=== PATIENT | female | born 1945 ===

== ENCOUNTER → 2017-06-24 | Outpatient (REF) | LOC: ZLAB.WCH 10:20 | DX: Z01.89 Encounter for other specified special examinations (principal) ==

== ENCOUNTER → 2019-09-15 | Outpatient (CLI) | payer MEDICARE | LOC: COL.RAD 13:33 | DX: G20 Parkinson's disease (principal); G25.81 Restless legs syndrome; G47.00 Insomnia, unspecified; G31.9 Degenerative disease of nervous system, unspecified ==

== ENCOUNTER 2020-09-15 12:20 | Emergency (ER) | payer MEDICARE ==
[~2020-09-15] VITALS: Ht 175.3 cm; Wt 59.1 kg
[2020-09-15 12:20] VITALS: TEMP 97.3
[2020-09-15 13:01] LABS: BASO % 0.9 % (0.0-2.0); EOS # 0.1 (0.0-0.7); EOS % 2.1 % (0-4.0); GRAN # 2.2 (1.4-6.5); GRAN % 51.2 % (42.2-75.2); HEMATOCRIT 36.7 % (37.0-47.0); HEMOGLOBIN 11.6 g/dl (12.5-16.0); LYMPH # 1.6 (1.2-3.4); LYMPH % 36.4 % (20.0-51.0); MEAN CELL VOLUME 97 fl (80.0-100.0); MEAN CORPUSCULAR HEMOGLOBIN 31 pg (27.0-31.0); MEAN CORPUSCULAR HGB CONC 32 g/dl (33.0-37.0); MEAN PLATELET VOLUME 9.2 fl (7.4-10.4); MONO # 0.4 (0.1-0.6); MONO % 9.2 % (1.7-9.3); PLATELET COUNT 250 K/mm3 (130-400); REDCELL DISTRIBUTION WIDTH-CV 12.3 % (11.5-14.5)
[2020-09-15 13:15] LABS: ALBUMIN 3.3 gm/dL (3.5-5.0); ALKALINE PHOSPHATASE 49 U/L (50-136); ANION GAP 3 mmol/L (7-16); AST,SGOT 17 U/L (15-37); BILIRUBIN,TOTAL 0.3 mg/dL (0.0-1.0); BLOOD UREA NITROGEN 14 mg/dL (7-17); CALCIUM 8.9 mg/dL (8.4-10.2); CARBON DIOXIDE 30 mmol/L (22-30); CHLORIDE 107 mmol/L (98-107); CREATININE, serum 0.59 (0.52-1.25); GLUCOSE 77 mg/dL (74-106); POTASSIUM 4.1 mmol/L (3.4-5.0); SODIUM 139 mmol/L (137-145); TOTAL PROTEIN 6.4 gm/dL (6.4-8.2)
[2020-09-15 13:17] LABS: COLLECTION METHOD CLEAN CATCH
[2020-09-15 13:18] LABS: ALANINE AMINOTRANSFERASE < 4 U/L (4-34)
[2020-09-15 13:30] LABS: PH 7 (5-8); SQUAMOUS EPITHELIAL None Seen /hpf; URINE APPEARANCE Hazy; URINE BACTERIA Rare /hpf; URINE BILIRUBIN Negative (NEGATIVE); URINE BLOOD 1+ (NEGATIVE); URINE COLOR Straw; URINE GLUCOSE Negative (NEGATIVE); URINE KETONE Negative (NEGATIVE); URINE LEUKOCYTE ESTERASE 3+ (NEGATIVE); URINE NITRATE Negative (NEGATIVE); URINE PROTEIN(semi-quant) Negative (NEGATIVE); URINE RBC 0-2 /hpf; URINE UROBILINOGEN Negative (NEGATIVE)
[2020-09-15] MEDS ORDERED: CIPRO 250MG TA250 MG PO (14:36)
[2020-09-15 15:58] VITALS: BP 138/93; PULSE 72
== END 2020-09-15 15:58 | disposition home or self-care (01) ==
LOC: COL.ER 12:20
PROVIDERS: Physician Assistant
DX: I95.9 Hypotension, unspecified (principal); N39.0 Urinary tract infection, site not specified; G20 Parkinson's disease; Z88.0 Allergy status to penicillin
CPT/HCPCS: J0696; J7030

== ENCOUNTER → 2023-05-12 | Outpatient (CLI) | payer MEDICARE ==
[~2023-05-12] MED LIST: B-12 500 MCG PO; CIPRO 250MG TA250 MG PO; COLACE 100100 MG/CAP PO; DEBROX OT; DULCOLAX TAB5 MG PO; GENTLE LAXATIVE10 MG RC; IMODIUM 2MG CAPS2 MG PO; MAG-OX 400400 MG/TAB PO; MILK OF MA400 MG/52 PO; MIRALAX PA17 GM/Dose PO; MYLANTA 150 ML150 M1 PO; NYAMYC100000 U/G TP; REFRESH PLUS 00.4 M1 OP; RYTARY1 CE2 PO; TYLENOL 325MG325 MG PO; TYLENOL SU650 MG/SUP RC; VITAMIN D 50,1.25 MG PO; VITAMIND3 5000 PO; [UNRECOGNIZED DRUG - OTHER] PO
[2023-05-12 13:05] LABS: BASO % 0.4 % (0.0-2.0); EOS % 0.4 % (0.0-4.0); GRAN # 5.3 K/mm3 (1.4-6.5); GRAN % 76.5 % (42.2-75.2); HEMATOCRIT 44.6 % (37.0-47.0); HEMOGLOBIN 14.3 g/dl (12.5-16.0); LYMPH # 1.1 K/mm3 (1.2-3.4); MEAN CELL VOLUME 95 fl (80.0-100.0); MEAN CORPUSCULAR HEMOGLOBIN 30 pg (27-31); MEAN CORPUSCULAR HGB CONC 32 g/dl (33.0-37.0); MEAN PLATELET VOLUME 9.6 fl (7.4-10.4); MONO # 0.4 K/mm3 (0.1-0.6); MONO % 6.3 % (1.7-9.3); PLATELET COUNT 341 K/mm3 (130-400); RED BLOOD COUNT 4.72 M/mm3 (4.10-5.30)
[2023-05-12 13:23] LABS: ALBUMIN 3.8 gm/dL (3.4-4.8); ALKALINE PHOSPHATASE 60 U/L (40-150); ANION GAP 9 mmol/L (7-16); AST,SGOT 14 U/L (5-34); BILIRUBIN,TOTAL 0.6 mg/dL (0.2-1.2); BLOOD UREA NITROGEN 29 mg/dL (10-20); CALCIUM 9.8 mg/dL (8.4-10.2); CARBON DIOXIDE 25 mmol/L (23-31); CHLORIDE 106 mmol/L (98-107); CREATININE, serum 0.67 mg/dL (0.57-1.11); GLUCOSE 109 mg/dL (70-99); LIPASE 59 U/L (8-78); SODIUM 140 mmol/L (136-145); TOTAL PROTEIN 7.2 gm/dL (6.2-8.1)
[2023-05-12 13:24] LABS: ALANINE AMINOTRANSFERASE < 6 U/L (0-55)
== END ==
LOC: COL.LAB 12:48
PROVIDERS: Internal Medicine
DX: I87.2 Venous insufficiency (chronic) (peripheral) (principal)

== ENCOUNTER → 2023-12-10 | Outpatient (REF) | payer MEDICARE, MEDICAID ==
[2023-12-10 17:42] LABS: COLLECTION METHOD CATHETER
[2023-12-10 17:46] LABS: PH 6.5 (5.0-8.5); URINE APPEARANCE CLEAR (CLEAR/HAZY); URINE BLOOD NEGATIVE (NEGATIVE); URINE COLOR YELLOW (YELLOW); URINE GLUCOSE NEGATIVE (NEGATIVE); URINE KETONE NEGATIVE (NEGATIVE); URINE NITRATE NEGATIVE (NEGATIVE); URINE PROTEIN(semi-quant) NEGATIVE (NEGATIVE); URINE UROBILINOGEN 0.2 E.U/dL (0.2-1.0)
== END ==
LOC: ZCOL.LAB 16:26
PROVIDERS: Physician Assistant
DX: N39.0 Urinary tract infection, site not specified (principal)

== ENCOUNTER 2024-01-05 00:36 | Inpatient (IN) | payer MEDICARE, MEDICAID ==
[~2024-01-05] VITALS: Ht 175.3 cm; Wt 69.9 kg
[2024-01-05] VITALS (9 sets, daily range): BP systolic 118–133; BP diastolic 73–83; PULSE 76–96; TEMP 97.5–99.6
[2024-01-05] MEDS ORDERED: Morphine 4 MG/ML VIAL IV ONE (01:00)
[2024-01-05] MEDS ORDERED: NS 1,000 ML IV ONE (01:15)
[2024-01-05] MEDS ORDERED: Ondansetron 4 MG/2 ML VIAL IV ONE (01:15)
[2024-01-05 01:54] LABS: HEMATOCRIT 46.7 % (37.0-47.0); HEMOGLOBIN 15.3 g/dl (12.5-16.0); MEAN CELL VOLUME 94 fl (80.0-100.0); MEAN CORPUSCULAR HEMOGLOBIN 31 pg (27-31); MEAN CORPUSCULAR HGB CONC 33 g/dl (33.0-37.0); MEAN PLATELET VOLUME 9.8 fl (7.4-10.4); PLATELET COUNT 374 K/mm3 (130-400); RED BLOOD COUNT 4.96 M/mm3 (4.10-5.30); REDCELL DISTRIBUTION WIDTH-CV 12.8 % (11.5-14.5)
[2024-01-05] MEDS ORDERED: LR 1,000 ML IV ONE ×2 (02:00→21:00)
[2024-01-05 02:08] LABS: COLLECTION METHOD CATHETER
[2024-01-05 02:09] LABS: ALBUMIN 3.8 g/dL (3.4-4.8); BILIRUBIN,TOTAL 0.6 mg/dL (0.2-1.2); C-REACTIVE PROTEIN 0.4 mg/dL (0.00-0.50); CALCIUM 9.6 mg/dL (8.4-10.2); CREATININE, serum 0.78 mg/dL (0.57-1.11); POTASSIUM 3.7 mEq/L (3.5-4.5); TOTAL PROTEIN 7.8 g/dl (6.2-8.1)
[2024-01-05 02:25] LABS: PH 5.5 (5.0-8.5); URINE APPEARANCE CLEAR (CLEAR/HAZY); URINE BLOOD TRACE (NEGATIVE); URINE COLOR YELLOW (YELLOW); URINE GLUCOSE NEGATIVE (NEGATIVE); URINE KETONE 3+ (NEGATIVE); URINE NITRATE NEGATIVE (NEGATIVE); URINE PROTEIN(semi-quant) 2+ (NEGATIVE)
[2024-01-05 02:39] LABS: MUCOUS PRESENT (NOT PRESENT); SQUAMOUS EPITHELIAL NONE SEEN /hpf (0-10); URINE BACTERIA RARE /hpf (NONE SEEN); URINE RBC 0-2 /hpf (0-2); URINE WBC None Seen /hpf (0-2)
[2024-01-05 02:49] LABS: BAND 8 % (0-10); LYMPHOCYTE 8 % (20.0-51.0); NEUTROPHILS 84 % (42.0-75.2)
[2024-01-05 02:51] LABS: PLATELET ESTIMATE NORMAL (NORMAL)
[2024-01-05] MEDS ORDERED: Iohexol 300 - 100 ML VIAL IV ONE (03:08)
[2024-01-05] MEDS ORDERED: NS 50 ML IV ONE (03:09)
[2024-01-05] MEDS ORDERED: Cefepime 1 G in Water For Injection,Sterile 10 ML IV ONE (03:15)
[2024-01-05] MEDS ORDERED: LINZESS145CAP PO (03:18)
[2024-01-05] MEDS ORDERED: [UNRECOGNIZED DRUG - OTHER] OP (03:19)
[2024-01-05] MEDS ORDERED: QUALITY CHOICE125 MG PO (03:21)
[2024-01-05] MEDS ORDERED: Ondansetron 4 MG/2 ML VIAL IV PRN (04:00)
[2024-01-05] MEDS ORDERED: LR 1,000 ML IV SCH (04:15)
--- NOTE | 2024-01-05 05:01 | NUR ---
Called Aaron, the PA and made him aware that patient has an NG tube, received an order to put the patient to LIS. Also received an order for covid swab.
--- NOTE | 2024-01-05 05:57 | NUR ---
Patient arrived to the floor at 0431 per cart from the ED, A/Ox4, with daughter Renee, admission assessment and intake done, hospital policies orientated, with oxygen via nasal cannula at 2LPM, with NG tube F16 to right nare, IV infusing well on left AC, reports minimal pain at 2/10, denies further needs, call light and personal items within reach, will continue to monitor.
[2024-01-05] MEDS ORDERED: TUMS500 MG (06:53)
[2024-01-05] MEDS ORDERED: VOLTAREN GEL 1%1 TU TP (06:55)
[2024-01-05] MEDS ORDERED: ZOFRAN 4MG T4 MG/TAB (06:57)
--- NOTE | 2024-01-05 08:50 | NUR ---
Patient resting in bed. Sleepy, but arouses. [facility] called, just updated on status of admission. Denies pain when asked. She remains NPO. Deines nausea. NG to CALVIN cobb/johny output. IVf as ordered. Heels floated. Patient hands clenched, able to lightly squeeze hands. Denies other needs at this time.
[2024-01-05] MEDS ORDERED: metroNIDAZOLE 100 ML IV SCH (10:30)
--- NOTE | 2024-01-05 11:09 | NUR ---
Patient repositioned in bed. Hospitalist rounded, order received
--- NOTE | 2024-01-05 11:57 | NUR ---
Data: Patient accepted spiritual care visit offered during Supervisor [employer] rounds. Patient stated she is Muslim, but is listed as Yarsanism on the census. Assessment: Patient desired prayer and scripture reading. Patient wants communion. Plan of Care: Supervisor [employer] provided supportive listening; read several Psalms; provided Patient with a rosaray; and prayer. Supervisor [employer] asked admissions in ED to change Patient's denomination in system so that she will be listed as Muslim to be able to receive communion on Sunday. Chaplains will remain available as needed/requested while admitted to this hospital.
--- NOTE | 2024-01-05 13:00 | NUR ---
Patient repositioned in bed. Bedpan used to Void, patient continent of urine. Pericares provided. IVf and antibiotic as ordered. Will monitor
--- NOTE | 2024-01-05 18:07 | NUR ---
Patient resting in bed. She has been continent of urine, using bedpan, assisted with pericares. She remains NPO with NG tube to LIS. IVF as ordered. Scds, Ble. Reoriented as needed. Reminded to not pull at tubes. High fall risk protocol followed.
--- NOTE | 2024-01-05 21:01 | NUR ---
Patient assessed at this time, drowsy but arousable, able to answer this nurse questions, see shift assessment, NG to LIS to her R nare, on oxygen at 2LPM via nasal cannula, IV infusing well on left antecubital LR at 75cc/hr, spoken to Aaron, the PA and received and order to continue the fluids at same rate, noted incontinent of urine, pericare provided, complete bed change done and repositioned to her right side to offload bottom, denies pain or discomfort, NPO maintained, oral swabs provided, denies further needs, call light and personal items within reach, will continue to monitor.
--- NOTE | 2024-01-05 23:41 | NUR ---
Repositioned patient to the left side, NG to LIS, with oxygen at 2LPM via nasal cannula, still drowsy but arousable.
[2024-01-06] VITALS (13 sets, daily range): BP systolic 118–166; BP diastolic 70–110; PULSE 79–108; TEMP 98.2–99.4
--- NOTE | 2024-01-06 01:30 | NUR ---
Originally NG was assessed at 65inches,at this time observed 70 inches marked. Readvanced NG down to original 65 inches marked, placement confirmed with charge nurse per auscultation, patient tolerated it, will monitor.
--- NOTE | 2024-01-06 03:26 | NUR ---
Patient incontinent of urine at this time, pericare provided, face wiped with wash cloth, oral care done, denies further needs.
[2024-01-06 06:29] LABS: BASO % 0.4 % (0.0-2.0); EOS # 0.1 K/mm3 (0.0-0.7); EOS % 0.7 % (0.0-4.0); GRAN # 6.6 K/mm3 (1.4-6.5); GRAN % 73.6 % (42.2-75.2); LYMPH # 1.7 K/mm3 (1.2-3.4); LYMPH % 18.7 % (20.0-51.0); MEAN CELL VOLUME 95 fl (80.0-100.0); MEAN CORPUSCULAR HEMOGLOBIN 30 pg (27-31); MEAN CORPUSCULAR HGB CONC 32 g/dl (33.0-37.0); MONO # 0.6 K/mm3 (0.1-0.6); MONO % 6.3 % (1.7-9.3); PLATELET COUNT 277 K/mm3 (130-400); REDCELL DISTRIBUTION WIDTH-CV 12.9 % (11.5-14.5)
[2024-01-06 06:49] LABS: HEMATOCRIT 39.1 % (37.0-47.0); HEMOGLOBIN 12.4 g/dl (12.5-16.0)
[2024-01-06 06:51] LABS: CALCIUM 8.5 mg/dL (8.4-10.2); CREATININE, serum 0.68 mg/dL (0.57-1.11); POTASSIUM 3.7 mEq/L (3.5-4.5)
--- NOTE | 2024-01-06 07:45 | NUR ---
Pt. sitting up in bed. Pt. is Alert and oriented to self, time and place, but still seems confused and upset. Pt. report from nursing facility, pt. is a sit to stand. This am pt. is very upset that we will not "walk" her into the bathroom. Discussed PT with the pt. Pt. also had pulled out her NG tube. New 16 Fr. placed to rt. nare, 60 cm malia noted and taped. Abd. auscultated for placement. Jon drainage noted, and place to LIS. IV site to lt. forearm also leaking. New sited started to rt. wrist, 20g. Shift assessment completed. Fluids running to new site per orders. Pericare provided to the pt. When asked if the pt. needed anything else, she stated "Well you could be nicer to me." Tried to explain to the pt. that the NG tube and IV were nessessary things at this time and that this nurse was not trying to be "mean" to her. Pt. then ignored this nurse completely.
--- NOTE | 2024-01-06 11:00 | NUR ---
Social work met with patient and patient's daughter Renee at bedside to discuss Discharge planning. Patient was semi-lucid, and dtr Renee answered SWs questions. Renee stated that the patient resides at [facility] and that her PCP is Dr. Gaviria. Renee reported that patient utilizes a wheelchair and needs assistance with all of her ADLs. Social work will fax clinical updates to [facility]. Plan: D/C to [facility]
--- NOTE | 2024-01-06 12:29 | NUR ---
greenhouse worker faxed clinical updates to [facility]
[2024-01-06] MEDS ORDERED: LR 1,000 ML IV SCH (14:15)
[2024-01-06] MEDS ORDERED: hydrALAZINE 20 MG/ML 1 ML VIAL IV PRN (15:15)
--- NOTE | 2024-01-06 20:00 | NUR ---
PATIENT IS ORIENTED X2, WITH NOTED CONFUSION & FORGETFULNESS. PATIENT FROM [facility] AND REQUIRES A [id number] LIFT. PT/OT CONSULTED. VSS. REPORTS MINIMAL ABD DISCOMFORT. NO C/O N/V. ABD IS DISTENDED WITH HYPO ACTIVE BOWL SOUNDS NOTED. NG TO LIS WITH MOD AMOUNTS OF DARK GREEN GASTRIC OUTPUT. NPO. IV FLUIDS INFUSING VIA PUMP INTO LEFT WRIST IV. PUREWICK INPLACE. HEAD TO TOE ASSESSMENT COMPLETE. HEEL PROTECTORS & SCD'S TO BLE. LEAVING FOR THE EVENING. NO OTHER NEEDS AT THIS TIME. CALL LIGHT IN REACH. BED ALARM ON.
[2024-01-07] VITALS (12 sets, daily range): BP systolic 102–159; BP diastolic 76–109; PULSE 66–107; TEMP 97.4–99.7
[2024-01-07 07:56] LABS: BASO # 0.1 K/mm3 (0.0-0.2); BASO % 0.7 % (0.0-2.0); EOS % 0.5 % (0.0-4.0); GRAN # 6.1 K/mm3 (1.4-6.5); HEMATOCRIT 42.1 % (37.0-47.0); HEMOGLOBIN 13.8 g/dl (12.5-16.0); LYMPH # 1.7 K/mm3 (1.2-3.4); LYMPH % 19.8 % (20.0-51.0); MEAN CELL VOLUME 93 fl (80.0-100.0); MEAN CORPUSCULAR HEMOGLOBIN 31 pg (27-31); MEAN CORPUSCULAR HGB CONC 33 g/dl (33.0-37.0); MEAN PLATELET VOLUME 9.2 fl (7.4-10.4); MONO # 0.6 K/mm3 (0.1-0.6); MONO % 7.3 % (1.7-9.3); PLATELET COUNT 295 K/mm3 (130-400); RED BLOOD COUNT 4.53 M/mm3 (4.10-5.30); REDCELL DISTRIBUTION WIDTH-CV 12.5 % (11.5-14.5)
[2024-01-07 08:11] LABS: CREATININE, serum 0.63 mg/dL (0.57-1.11)
--- NOTE | 2024-01-07 08:28 | NUR ---
Patient awake this am, not in good spirits. Irritabe/aggitated with staff. Her spirits improve when her daughter arrives. She denies pain and nausea. Patient reports wanting to get out of bed. Patient a heavy 2 assist to chair with gaitbelt. High fall risk protocol followed. Purwick removed. Hygiene and fresh linens provided. Ng remains to LIS. IVF as ordered. Scds off while in chair. Denies other needs at this time
--- NOTE | 2024-01-07 09:59 | NUR ---
Initial visit; Patient's daughter thanked Manager [employer] for looking in on mom, whom Manager [employer] knows from when we were raising their children in the same community. Manager [employer] recalls daughter as well. Manager [employer] mentioned she would keep mom in her prayers.
[2024-01-07] MEDS ORDERED: RYTARY PO SCH (13:00)
--- NOTE | 2024-01-07 13:49 | NUR ---
Patient heavy 3 assist back to bed. Patient up to commode prior to returning to bed. Patient minimally bearing weight. Gaitbelt used. scds ble. gaymar boots on. Warm blanket for comfort. SO far tolerating clear liquids without nausea and NG tube clamped. Her daughter at bedside.
--- NOTE | 2024-01-07 16:37 | NUR ---
Patient has tolerated her NG tube being clamped. Denies nausea and no emesis. No reports of pain. Will encourage PO liquid intake. She sleeps frequently, but arouses easy. Family has been at bedside.
--- NOTE | 2024-01-07 17:22 | NUR ---
Patient has minimal interest in clear liquids offered, cofee, jello, juice, broth. Denies nausea of pain. Patient provided with incontinence cares and repositioing. Her at bedside.
--- NOTE | 2024-01-07 20:00 | NUR ---
Assessment complete. Alert but very drowsy and falling asleep during assessment but will answer some questions. is at bedside. This nurse tried to get patient to take in some clear liquids but has no interest. HS meds given crushed in applesauce. LR@75ml/hr infusing to left forearm IV without difficulty. VS stable-slightly elevated blood pressure-will monitor. Repositioned in bed with pillow support. Primo boots and SCDs bilat. Plan of care discussed for this shift to include meds/repositioning/calling for questions/concerns. Call light in reach. Bed alarm on. Will monitor.
--- NOTE | 2024-01-07 22:00 | NUR ---
Repositioned to left side with pillow support. Radha care provided and purewick placed. No s/s of pain or discomfort noted. Will monitor.
--- NOTE | 2024-01-07 23:57 | NUR ---
Repositioned in bed to right side with pillow support. Patient denies pain/nausea/shortness of breath. Denies current questions/concerns. Call light in reach. Will monitor.
[2024-01-08] VITALS (12 sets, daily range): BP systolic 107–149; BP diastolic 72–115; PULSE 75–96; TEMP 97.6–98.8
--- NOTE | 2024-01-08 03:29 | NUR ---
Patient repositioned in bed at this time to supine. Pillow support to arms/in between knees. Purewick in place. Denies needs. Call light in reach. WIll monitor.
--- NOTE | 2024-01-08 05:46 | NUR ---
AM meds given crushed in applesauce-tolerated well. This nurse attempted to offer clear liquids throughout this shift. Only would take in small sips of water. Repositioned every 2 hours with pillow support. Purewick in place overnight with adequate output. IV to left forearm with LR@75ml/hr infusing without difficulty. Primo boots/SCDs bilat. Denies current needs. Call light in reach. Will monitor.
[2024-01-08 06:30] LABS: BASO % 0.6 % (0.0-2.0); EOS # 0.2 K/mm3 (0.0-0.7); EOS % 2.9 % (0.0-4.0); GRAN % 62.4 % (42.2-75.2); HEMATOCRIT 40.2 % (37.0-47.0); HEMOGLOBIN 13.3 g/dl (12.5-16.0); LYMPH # 1.6 K/mm3 (1.2-3.4); LYMPH % 24.3 % (20.0-51.0); MEAN CELL VOLUME 93 fl (80.0-100.0); MEAN CORPUSCULAR HEMOGLOBIN 31 pg (27-31); MEAN CORPUSCULAR HGB CONC 33 g/dl (33.0-37.0); MEAN PLATELET VOLUME 9.6 fl (7.4-10.4); MONO # 0.6 K/mm3 (0.1-0.6); PLATELET COUNT 288 K/mm3 (130-400); RED BLOOD COUNT 4.32 M/mm3 (4.10-5.30); REDCELL DISTRIBUTION WIDTH-CV 12.4 % (11.5-14.5)
[2024-01-08 06:46] LABS: CALCIUM 8.6 mg/dL (8.4-10.2); CREATININE, serum 0.6 mg/dL (0.57-1.11); POTASSIUM 3.4 mEq/L (3.5-4.5)
[2024-01-08] MEDS ORDERED: *Potassium Replacement Protocol MC SCH (10:15)
[2024-01-08] MEDS ORDERED: Potassium Bicarbonate/Citrate 20 MEQ Effervescent TAB PO SCH (10:30)
--- NOTE | 2024-01-08 12:16 | NUR ---
LINO attended clinical rounds. Patient possible discharge tomorrow to return to [facility]. LINO sent updated clinical documents to [facility] via secure email. LINO called Ambar to update of possible return tomorrow. Discharge plan: [facility]
--- NOTE | 2024-01-08 20:01 | NUR ---
PATIENT RESTING IN BED WITH AT BEDSIDE. REQUESTING COFFEE BUT STATES SHE TAKES HER COFFEE WITH MILK AND HER DIET IS CLEAR LIQUIDS, SHE CANNOT HAVE IT AT THIS TIME. DENIES PAIN. CALL LIGHT WITHIN REACH. BED IS LOCKED AND IN LOW POSITION
[2024-01-09] VITALS (13 sets, daily range): BP systolic 98–161; BP diastolic 68–107; PULSE 74–97; TEMP 97.5–98.4
--- NOTE | 2024-01-09 03:57 | NUR ---
WHILE CHANGING PATIENT'S BEDDING FOLLOWING INCONTINENCE, PATIENT ACCUSED OF STAFF OF HITTING HER "SO MANY TIMES" AND RETALIATING BY THEN HITTING STAFF IN THE ARMS.
--- NOTE | 2024-01-09 08:00 | NUR ---
PATIENT LYING IN BED. HEAD TO TOE ASSESSMENT COMPLETED. EDEMA PRESENT LEFT HAND AND ARM. ORDERED TO DC IV. ELEVATING LEFT ARM/HAND WITH PILLOW. CHANGED LINEN AND PUREWICK. PROVIDED HYGIENE CARE. DAUGHTER AT BEDSIDE. BED IN LOWEST POSITION, CALL LIGHT IN REACH.
[2024-01-09 09:53] LABS: CALCIUM 8.7 mg/dL (8.4-10.2); CREATININE, serum 0.62 mg/dL (0.57-1.11); POTASSIUM 3.4 mEq/L (3.5-4.5)
[2024-01-09 10:15] LABS: BASO % 0.5 % (0.0-2.0); EOS # 0.1 K/mm3 (0.0-0.7); EOS % 2.4 % (0.0-4.0); GRAN % 70.3 % (42.2-75.2); HEMATOCRIT 41.8 % (37.0-47.0); HEMOGLOBIN 14.1 g/dl (12.5-16.0); LYMPH # 1.1 K/mm3 (1.2-3.4); LYMPH % 18.8 % (20.0-51.0); MEAN CELL VOLUME 92 fl (80.0-100.0); MEAN CORPUSCULAR HEMOGLOBIN 31 pg (27-31); MEAN CORPUSCULAR HGB CONC 34 g/dl (33.0-37.0); MEAN PLATELET VOLUME 9.1 fl (7.4-10.4); MONO # 0.4 K/mm3 (0.1-0.6); MONO % 7.5 % (1.7-9.3); PLATELET COUNT 314 K/mm3 (130-400); RED BLOOD COUNT 4.56 M/mm3 (4.10-5.30); REDCELL DISTRIBUTION WIDTH-CV 12.4 % (11.5-14.5)
[2024-01-09] MEDS ORDERED: Rivaroxaban 15 MG TAB PO SCH (11:23)
--- NOTE | 2024-01-09 14:14 | NUR ---
Clinical updated sent via secure email by LINO Discharge plan: SNF
--- NOTE | 2024-01-09 20:20 | NUR ---
pt is resting in bed, at bedside. pt oriented x3 with occasional confusion. pt answers questions appropriately but keeps eyes closed during conversation. vss. meds given crushed with applesauce. pt denies pain and nausea. abdomen is soft, bowel sounds are active. swelling is present to LUE, pt denies pain. purewick in place to prevent incontinence. pt denies needs at this time. call light in reach. fall precautions in place.
--- NOTE | 2024-01-09 23:46 | NUR ---
PCT reported to this nurse BP of 161/107. pt has PRN hydralazine in emar but patient no longer has IV access. Aaron MCCLENDON notified and once time order of PO Labetolol given.
[2024-01-10 01:09] VITALS: BP_SYST 161
[2024-01-10 01:17] VITALS: BP 114/73
[2024-01-10 03:55] VITALS: BP 112/65; PULSE 87; TEMP 97.9
[2024-01-10 04:26] VITALS: BP_SYST 112
[2024-01-10 08:00] VITALS: BP 130/90; PULSE 92; TEMP 98.6
--- NOTE | 2024-01-10 08:00 | NUR ---
PATIENT LYING IN BED. HEAD TO TOE ASSESSMENT COMPLETED. MORNING MED GIVEN. CHANGE LINEN, AND PUREWICK. REPOSITIONED HEAL PROTECTORS AND SCDS. DENIES PAIN AT THIS TIME. DAUGHTER AT BEDSIDE PREPARING TO FEED PATIENT. BED IN LOWEST POSITION, CALL LIGHT IN REACH, BED ALARM ON.
[2024-01-10 09:00] VITALS: BP_SYST 130
[2024-01-10] MEDS ORDERED: XARELTO15 MG PO (09:00)
--- NOTE | 2024-01-10 09:04 | NUR ---
LINO attended clinical rounds, informed that patient is stable for discharge today. LINO sent clinical updates to [facility] for review. Received call back from Ambar at [facility] accepting patient for admission today with transport at 1030. LINO reviewed Medicare IM form with patient's daughter who voiced understanding and agreement with discharge. Daughter signed form, original on chart and copy to daughter. Discharge orders sent via secure email to [facility]. Staff notified of transport time. Discharge plan: [facility]
[2024-01-10 10:25] LABS: BASO % 0.6 % (0.0-2.0); EOS # 0.1 K/mm3 (0.0-0.7); EOS % 2.5 % (0.0-4.0); GRAN # 3.3 K/mm3 (1.4-6.5); GRAN % 63.1 % (42.2-75.2); HEMATOCRIT 40.4 % (37.0-47.0); HEMOGLOBIN 13.5 g/dl (12.5-16.0); LYMPH # 1.3 K/mm3 (1.2-3.4); LYMPH % 24.6 % (20.0-51.0); MEAN CELL VOLUME 92 fl (80.0-100.0); MEAN CORPUSCULAR HEMOGLOBIN 31 pg (27-31); MEAN CORPUSCULAR HGB CONC 33 g/dl (33.0-37.0); MEAN PLATELET VOLUME 9.7 fl (7.4-10.4); MONO # 0.5 K/mm3 (0.1-0.6); MONO % 8.6 % (1.7-9.3); PLATELET COUNT 335 K/mm3 (130-400); RED BLOOD COUNT 4.37 M/mm3 (4.10-5.30); REDCELL DISTRIBUTION WIDTH-CV 12.6 % (11.5-14.5)
[2024-01-10 10:38] LABS: CREATININE, serum 0.62 mg/dL (0.57-1.11)
--- NOTE | 2024-01-10 11:31 | NUR ---
PATIENT PREPARED FOR DISCHARGED. IV D/C YESTERDAY PER DOCTOR ORDER. [employer] ARRIVED, PATIENT SENT VIA WHEELCHAIR WITH BELONGINGS. CALLED REPORT TO YRIS CRUZ, REPORT RECEIVED.
== END 2024-01-10 11:30 | DRG 392 ==
LOC: COL.ER 00:36 → SURG 03:23
PROVIDERS: Internal Medicine; Nurse Practitioner; Physician Assistant; ADMIT Internal Medicine
DX: K31.84 Gastroparesis (principal); K31.89 Other diseases of stomach and duodenum; G31.84 Mild cognitive impairment of uncertain or unknown etiology; G20.A1 Parkinson's disease without dyskinesia, without mention of fluctuations; K90.0 Celiac disease; E78.5 Hyperlipidemia, unspecified; E87.6 Hypokalemia
CPT/HCPCS: J0360; J0692; J0744; J1836; J2270; J2405; J7030; J7120; Q9967